=== PATIENT | female | born 1940 | race Caucasian/White ===

== ENCOUNTER 2025-03-01 22:51 | Inpatient (IN) | payer MEDICARE, SELFPAY ==
[2025-03-01 23:57] VITALS: BMI 18.9
[2025-03-02 00:01] VITALS: BP 165/85; PULSE 60; RESP 18; TEMP 36.6; O2SAT 95
--- NOTE | 2025-03-02 05:03 | PC.ADMIT ---
Tiffanie is an 84 years old female with past medical hx of pyelonephritis, UTI, HTN, kidney disease, Eczema, back surgery, colon surgery and disease of the thyroid gland who was taken in by EMS to [facility] reporting high anxiety. According to report, pt came in complaining of severe mental distress. pt had just moved up here to be closer to family but family has left her without telling her, so now, she endorses sadness. pt states she has not been taking her medications for the last 5 days because she is having difficulty obtaining her prescriptions, due to change in pharmacy after moving. pt states her daughter left her and she has no other contacts in [place]. pt arrived to at 2313, with an admitting diagnosis of major depressive disorder. pt is alert and oriented to self, date and situation but thought she was still at [facility]. pt signed a CV and was placed on 5mins safety check. pt was calm, pleasant, but appeared sad. Pt was not able to complete admission process, reported I cant do this right now, am very tired and am hurting, If I can get my HS medications including something for pain, so I can go to bed . pt endorses high 10/10 anxiety/depression but denied SI/HI/AVH. Pt also reported right shoulder pain, stating I have a rotator cuff tear from lifting something heavy . VSS unremarkable, pt has no visible skin issues, med. rec completed, pending unit orientation due to tiredness. Pt is FC and has multiple allergies. Hospitalist consult pending.
[2025-03-02 07:55] VITALS: BP 159/72; PULSE 65; RESP 18; TEMP 36.6; O2SAT 93
--- NOTE | 2025-03-02 09:07 | HO.PSYADMNOT ---
HPI Date of Service: 03/02/25 Chief Complaint: Major Dep Disorder recurrent severe w/out psychoti Sources of Information: patient interviewed, chart reviewed and crisis/core team assessment reviewed HPI Subjective Notes: Raza Warning and Conditional Voluntary Narrative: Mrs. Cunningham is an 84 year-old woman with a hx of MDD, who self presented to [facility] reporting anxiety attact, concern for medication misuse. No reported SI/HI. Pertinent labs in ED include CBC without leukocytosis, H&H low side of normal with elevated MCV (will check B12), CMP without electrolyte abnormalities, BUN 13, Cr 0.72, Creatinine clearance 84. Utox positive for THC. BAL 10. Pt had also reported drinking one glass of wine daily at night. UA not suggestive of UTI. On the unit, pt reports she went to the ED because she had anxiety attacks. She describes such incidences as I start shaking, crying, screaming, can't walk, feel very restless. She denies SI/HI. She reports she has struggled with symptoms of depression for several years and has been followed by a psychiatrist in the community. She reports modafanil has been very helpful for depression along with other medications she is on. She denies hx of suicide attempts. She reports she used to get oxycodone for back pain but one year ago it was switch to suboxone. She reports chronic back pain due to scoliosis, shoulder pain. She also reports she was at [facility] and her insurance stopped paying so she recently moved to an [facility] on her own and since then she had issues with her pharmacy and difficulty taking medications as prescribed. Per daughter, mother has hx of substance use, opioid medications and going to multiple providers. No hx of VH/AH. No hx of delusions. Pt reports poor sleep due to pain. She reports using edibles to help with sleep. She is noted to have a resting tremors and some tapping of her feet. Past Psychiatric History: Inpt: none prior OP: Dr. Mack Past medication trials: wellbutrin, abilify, modafinil, lexapro Medical Evaluation Reviewed: Yes PMFSH Family History: none Social History: Pt originally from [place]. She has a brother. Completed 4 year college. She has two daughters. Substance History: Pt not fully forthcoming. She does report using alcohol daily- glass of wine at night. Per daughter misuse of opioid pain medications. Trauma History: denies Diagnostics Vital Signs (24Hr): Vital Signs - 24 hr 03/02/25 00:01 Temperature 97.9 F Pulse Rate 60 Respiratory Rate 18 Blood Pressure 165/85 H Pulse Oximetry 95 Oxygen Delivery Method Room Air BMI result Body Mass Index 18.9 Labs 03/03/25 07:12 03/03/25 07:12 Meds/Allergies Meds Home Medications ?Medication ?Instructions ?Recorded ?Confirmed ?Type CeraVe 1 applicator topical DAILY PRN Dry 03/02/25 03/02/25 History Skin amlodipine 10 mg tablet 10 mg PO DAILY 03/02/25 03/02/25 History aripiprazole 10 mg tablet 10 mg PO BEDTIME 03/02/25 03/02/25 History bisacodyl 5 mg PO DAILY PRN Constipation 03/02/25 03/02/25 History buprenorphine 2 mg-naloxone 0.5 mg 3 film sublingual DAILY 03/02/25 03/02/25 History sublingual film bupropion HCl 100 mg tablet 100 mg PO DAILY 03/02/25 03/02/25 History cholecalciferol (vitamin D3) 100 mcg PO DAILY 03/02/25 03/02/25 History diphenhydramine citrate 25 mg PO BEDTIME PRN Itching 03/02/25 03/02/25 History escitalopram oxalate 10 mg tablet 15 mg PO BEDTIME 03/02/25 03/02/25 History eszopiclone 1 mg tablet 1 mg PO BEDTIME 03/02/25 03/02/25 History ferrous sulfate 325 mg PO Q OTHER DAY 03/02/25 03/02/25 History fluticasone propionate 50 1 spray intranasal DAILY 03/02/25 03/02/25 History mcg/actuation nasal spray,suspension latanoprost 1 drp Not Applicable DIRECTED 03/02/25 03/02/25 History levothyroxine 100 mcg tablet 100 mcg PO DAILY 03/02/25 03/02/25 History losartan 50 mg tablet 50 mg PO DAILY 03/02/25 03/02/25 History modafinil 200 mg tablet 200 mg PO BID 03/02/25 03/02/25 History ondansetron HCl 4 mg tablet 4 mg PO TID 03/02/25 03/02/25 History rosuvastatin 5 mg tablet 5 mg PO DAILY 03/02/25 03/02/25 History senna-docusate sodium 8.6 - 50 mg PO DAILY PRN 03/02/25 03/02/25 History Constipation triamcinolone acetonide 0.1 % 1 appl topical BID PRN irritation 03/02/25 03/02/25 History topical cream Allergies Allergies Allergy/AdvReac Type Severity Reaction Status Date / Time bacitracin Allergy Unknown Verified 03/01/25 23:54 chlorhexidine Allergy Unknown Verified 03/01/25 23:54 chloroxylenol Allergy Unknown Verified 03/01/25 23:54 imidurea Allergy Unknown Verified 03/01/25 23:54 neomycin Allergy Unknown Verified 03/01/25 23:54 quaternium 15 Allergy Unknown Verified 03/01/25 23:54 glutaral Allergy Unknown Uncoded 03/01/25 23:54 Octanoic acid Allergy Unknown Uncoded 03/01/25 23:54 Mental Status Exam Mental Status Exam Narrative: Appearance: casual clothing, good hygiene, in NAD behavior: somewhat guarded and irritable, but cooperative Psychomotor: no agitaiton or retardation noted Speech: clear, normal rate/rhythm/volume, spontaneous TP: focused on anxiety and needing ativan TC: wanting to go home soon Mood: anxious Affect: at times irritable SI: denies HI: denies VH/AH: none Delusions: none Insight/judgment: poor x 2 Memory/cog:alert, oriented x 3. pending MOCA/ACL. Assessment & Plan Assessment & Plan (1) MDD (major depressive disorder), recurrent episode, moderate: Status: Acute Code(s): F33.1 - Major depressive disorder, recurrent, moderate Plan Mrs. cunningham is an 84 year-old woman with hx of MDD, reports anxiety attacks which she reports are recent. She reports shaking. noted to have resting tremors and tapping feet, do suspect underlying movement d/o. resting tremor concerning for Parkinsonism. But also wonder if some degree of akathisia with subjective feeling of restlessness and tapping feet. We discussed risks, benefits and alternative treatment options, discussed holding abilify for now due to concern of akathia and parkinsonism. Discussed continuing modafinil and lexapro. hold wellbutrin since she reports mostly increase anxiety and restless (may reintroduce). Obtain collateral information from family and OP psychiatrist. OT to complete MOCA/ACL. SW looking into [facility] (reason as to why pt not able to stay as she appears to need more supports). PLAN 1. Admit to S1, CV, 15 minutes checks 2. continue modafinil, lexapro. hold abilify and wellbutrin. 3. obtain collateral information 4.aftercare planning. Patient educated on: diagnosis, medication risk/benefits and substance abuse Reason for continued inpatient stay Substantial Risk for: inability to function Statement Statement: I have reviewed the history and physical and performed a pertinent examination on my patient. No changes have occurred unless specified. If the History and Physical was not performed prior to admission, the Hospitalist's service will be consulted for completing the admission physical. Time Spent With Patient Time: Total time managing care of this patient today ____ minutes.
--- NOTE | 2025-03-02 10:02 | HO.PM.IMCN ---
History of Present Illness Data of Consult Service Date: 03/02/25 Primary Care Provider: Unknown Physician HPI Reason for consult: Medical management 84-year-old female with a past medical history of hypertension, hypothyroidism, history of UTIs and pyelonephritis, mood disorder, history of opioid misuse on Suboxone, history of EtOH, pharyngeal esophageal dysphagia, and eczema, was admitted to [facility] with suicidal ideation. [facility] she reports that she is prescribed Suboxone 3 times daily. Patient is vague and has inconsistencies regarding her substance use history. She reports that she last used opiates 35 years ago, and then reports that she last used 2 years ago. She is difficult to redirect, focusing on her anxiety level. Requesting multiple medications. She does not appear to be any acute distress on examination. On review of her record her labs were within normal limits. She tested positive for marijuana her tox screen, reports she using gummy THC. Daily EtOH use. She denies any shortness of breath, chest pain, dizziness lightheadedness or any other concerning symptoms. Review of Systems Review of Systems: Denies any shortness of breath, chest pain, dizziness, lightheadedness, abdominal pain or discomfort, nausea vomiting or diarrhea PMFSH Social History Patient Tobacco Use Status: Never used Tobacco Currently Displaying Signs/Symptoms of Drug Intoxication Withdrawal: No Advance Directives: Yes Advance Directives Information Provided: No Advance Directives on File: No Do you have thoughts of harming others: None Do you have a plan to hurt others: No Plan Patient : No service: No Sexual orientation: Straight/Heterosexual Meds Allergies Allergy/AdvReac Type Severity Reaction Status Date / Time bacitracin Allergy Unknown Verified 03/01/25 23:54 chlorhexidine Allergy Unknown Verified 03/01/25 23:54 chloroxylenol Allergy Unknown Verified 03/01/25 23:54 imidurea Allergy Unknown Verified 03/01/25 23:54 neomycin Allergy Unknown Verified 03/01/25 23:54 quaternium 15 Allergy Unknown Verified 03/01/25 23:54 glutaral Allergy Unknown Uncoded 03/01/25 23:54 Octanoic acid Allergy Unknown Uncoded 03/01/25 23:54 Active Medications: Current Medications Acetaminophen (Acetaminophen 325 Mg Tablet) 650 mg PO Q6H PRN PRN Reason: Headache/Pain, Scale 1-10 Last Admin: 03/02/25 09:21 Dose: 650 mg Al Hydroxide/Mg Hydroxide (Magnesium Hydrox/Alum Hydrox 30 Ml Oral.Susp) 30 ml PO Q6H PRN PRN Reason: Heartburn/Nausea Amlodipine Besylate (Amlodipine Besylate 10 Mg Tablet) 10 mg PO DAILY [facility]; Protocol Last Admin: 03/02/25 07:58 Dose: 10 mg Aripiprazole (Aripiprazole 10 Mg Tablet) 10 mg PO BEDTIME [facility] Buprenorphine/Naloxone (Buprenorphine/Naloxone 2/0.5mg Tab.Subl) 1 tab SUBLINGUAL TID [facility] Escitalopram Oxalate (Escitalopram Oxalate 10 Mg Tablet) 10 mg PO DAILY [facility] Last Admin: 03/02/25 07:59 Dose: 10 mg Latanoprost (Latanoprost 0.005 % Ophth Radha 2.5 Ml Drops) 1 drop EYE-BOTH BEDTIME [facility] Levothyroxine Sodium (Levothyroxine Sodium 100 Mcg Tablet) 100 mcg PO DAILY@0600 [facility] Last Admin: 03/02/25 05:16 Dose: 100 mcg Losartan Potassium (Losartan Potassium 50 Mg Tablet) 50 mg PO DAILY [facility]; Protocol Last Admin: 03/02/25 07:58 Dose: 50 mg Magnesium Hydroxide (Milk Of Magnesia 30 Ml Oral.Susp) 30 ml PO DAILY PRN PRN Reason: Constipation Thiamine HCl (Thiamine Hcl 100 Mg Tablet) 100 mg PO DAILY [facility] Last Admin: 03/02/25 07:58 Dose: 100 mg Home Medications ?Medication ?Instructions ?Recorded ?Confirmed ?Last Taken ?Type CeraVe 1 applicator topical DAILY PRN Dry 03/02/25 03/02/25 Unknown History Skin amlodipine 10 mg tablet 10 mg PO DAILY 03/02/25 03/02/25 Unknown History aripiprazole 10 mg tablet 10 mg PO BEDTIME 03/02/25 03/02/25 Unknown History bisacodyl 5 mg PO DAILY PRN Constipation 03/02/25 03/02/25 Unknown History buprenorphine 2 mg-naloxone 0.5 mg 3 film sublingual DAILY 03/02/25 03/02/25 Unknown History sublingual film bupropion HCl 100 mg tablet 100 mg PO DAILY 03/02/25 03/02/25 Unknown History cholecalciferol (vitamin D3) 100 mcg PO DAILY 03/02/25 03/02/25 Unknown History diphenhydramine citrate 25 mg PO BEDTIME PRN Itching 03/02/25 03/02/25 Unknown History escitalopram oxalate 10 mg tablet 15 mg PO BEDTIME 03/02/25 03/02/25 Unknown History eszopiclone 1 mg tablet 1 mg PO BEDTIME 03/02/25 03/02/25 Unknown History ferrous sulfate 325 mg PO Q OTHER DAY 03/02/25 03/02/25 Unknown History fluticasone propionate 50 1 spray intranasal DAILY 03/02/25 03/02/25 Unknown History mcg/actuation nasal spray,suspension latanoprost 1 drp Not Applicable DIRECTED 03/02/25 03/02/25 Unknown History levothyroxine 100 mcg tablet 100 mcg PO DAILY 03/02/25 03/02/25 Unknown History losartan 50 mg tablet 50 mg PO DAILY 03/02/25 03/02/25 Unknown History modafinil 200 mg tablet 200 mg PO BID 03/02/25 03/02/25 Unknown History ondansetron HCl 4 mg tablet 4 mg PO TID 03/02/25 03/02/25 Unknown History rosuvastatin 5 mg tablet 5 mg PO DAILY 03/02/25 03/02/25 Unknown History senna-docusate sodium 8.6 - 50 mg PO DAILY PRN 03/02/25 03/02/25 Unknown History Constipation triamcinolone acetonide 0.1 % 1 appl topical BID PRN irritation 03/02/25 03/02/25 Unknown History topical cream Physical Exam Vital Signs and Narrative: Vital Signs: Last Vital Signs Temp 97.9 F 03/02/25 00:01 Pulse 60 03/02/25 00:01 Resp 18 03/02/25 00:01 BP 165/85 H 03/02/25 00:01 Pulse Ox 95 03/02/25 00:01 O2 Del Method Room Air 03/02/25 00:01 BMI result Body Mass Index 18.9 Alert and oriented X3, poor historian, anxious Neuro: CN II-X11 intact, no deficits, visual acuity intact EYES: PERRLA, EOM intact ENT: Hearing intact, lips moist Cardiac: S1 S2 RRR, No ectopy Pulmonary: lungs clear to auscultation, No increased WOB. Abdominal: BS active in all 4 quadrants, no guarding or tenderness MSK: Strength 5/5 upper and lower extremities : Deferred Extremities: No edema in lower extremities Psych: Anxious mood Skin: Warm and dry, Intact Assessment and Plan (1) HTN (hypertension): Status: Acute Plan Mood disorder/suicidal ideation Plan per Psychiatry Substance misuse disorder Continue Suboxone t.i.d. Hypertension Continue amlodipine, and losartan. Hypothyroidism Continue levothyroxine. Thank you for allowing me to participate in the care of this patient. We will follow as needed. Please reconsult of any acute concerns or issues arise
--- NOTE | 2025-03-02 10:34 | PC.NURSE ---
Daughter Elizabeth Gordon: phone number [phone]
[2025-03-02] MEDS: Buprenorphine/Naloxone 2/0.5mg TAB.SUBL 1 TAB SUBLINGUAL ×3 (11:53→20:15)
[2025-03-02 14:47] VITALS: BMI 18.9
--- NOTE | 2025-03-02 18:25 | PC.NURSE ---
Pt.'s daughter, Lenora called and requested information about her mother. This caption writer provided the information requested. She stated over and over my mother runs out of Provigil, and she looses it when she is out for the month early, which happens every month . She was also on Linesta 3mg at , and she would run out of that as well. In addition, she drinks a whole bottle of wine every day . She also has a hx of pain medication dependency since she was in her 20's . She requested to be transferred to social work, which this caption writer did.
[2025-03-02 20:10] VITALS: BP 150/67; PULSE 58; RESP 16; TEMP 36.9; O2SAT 93
[2025-03-03 07:41] LABS: MANUAL DIFF FLAG NO
[2025-03-03 07:48] LABS: Hematocrit 36.4 % (37.0-47.0); Hemoglobin 12.3 g/dl (12.0-16.0); Imm Gran Abs Auto 0.01 X10*3/uL (0.00-0.03); Imm Gran Pct Auto 0.2 % (0.0-0.4); Lymphocytes Absolute Auto 2.0 X10*3/uL (1.2-4.9); Mean Corpuscular HGB Conc 33.8 g/dl (31.0-35.0); Mean Corpuscular Hemoglobin 32.3 pg (27.0-33.0); Mean Corpuscular Volume 95.5 fL (80.0-98.0); NRBC Abs Auto 0.000 X10*3/uL (0.0-0.012); NRBC Pct Auto 0.0 /100WBC (0.0-0.2); Platelet Count 337 X10*3/uL (160-400); Red Blood Count 3.81 X10*6/uL (4.20-5.50); White Blood Count 6.6 X10*3/uL (4.8-10.8)
[2025-03-03 08:00] VITALS: BP 134/65; PULSE 73; RESP 16; TEMP 2.5; TEMP 36.5; O2SAT 94
[2025-03-03 08:02] LABS: Alanine Aminotransferase 28 U/L (0-31); Albumin Level 4.1 g/dL (3.5-5.0); Alkaline Phosphatase 133 U/L (39-117); Anion Gap 13 (12-20); Aspartate Amino Transferase 34 U/L (5-31); Blood Urea Nitrogen 18 mg/dL (9-16); Calcium 9.3 mg/dL (8.4-10.2); Carbon Dioxide 27 mmol/L (22-29); Chloride 104 mmol/L (96-108); Cholesterol 234 mg/dL (<200); Creatinine Clr Calc Pharmacy 38.8; Estimated Glomerular Filt Rate > 60; HDL Cholesterol 107 mg/dL (>40); Magnesium 2.0 mg/dL (1.6-2.6); Potassium 4.4 mmol/L (3.3-5.1); Sodium 140 mmol/L (135-145); Total Protein 6.8 g/dL (6.5-8.0); Triglycerides 115 mg/dL (<150)
[2025-03-03 08:08] LABS: Hemoglobin A1C 103.3611 umol/L; Total Hemoglobin (HGBA1C) 3250.0492 umol/L
[2025-03-03 09:18] VITALS: BP 134/65
[2025-03-03] MEDS: Buprenorphine/Naloxone 2/0.5mg TAB.SUBL 1 TAB SUBLINGUAL ×3 (09:18→20:10)
[2025-03-03 09:20] VITALS: BP 134/65
--- NOTE | 2025-03-03 19:23 | HO.PSYCHPN ---
Subjective Subjective Date of Service: 03/03/25 Reason For Visit: Major Dep Disorder recurrent severe w/out psychoti Subjective Notes: Conditional Voluntary and 3 Day Interim History: Pt reports feeling less anxious. She reports poor sleep. we do not have lunesta. we discussed trazodone 50mg po qhs. she denies SI/HI. She reports conflict with daughters. She reports she wants to go home soon. Review of Systems Review of Systems Denies any shortness of breath, chest pain, dizziness, lightheadedness, abdominal pain or discomfort, nausea vomiting or diarrhea Mental Status Exam Mental Status Exam Narrative: Appearance: casual clothing, good hygiene, in NAD behavior: somewhat guarded and irritable, but cooperative Psychomotor: no agitaiton or retardation noted Speech: clear, normal rate/rhythm/volume, spontaneous TP: focused on anxiety and needing ativan TC: wanting to go home soon Mood: anxious Affect: at times irritable SI: denies HI: denies VH/AH: none Delusions: none Insight/judgment: poor x 2 Memory/cog:alert, oriented x 3. pending MOCA/ACL. Diagnostics Vital Signs (24Hr): Vital Signs - 24 hr 03/02/25 20:10 03/03/25 08:00 03/03/25 09:18 Temperature 98.5 F 36.5 F L Pulse Rate 58 73 Respiratory Rate 16 16 Blood Pressure 150/67 H 134/65 134/65 Pulse Oximetry 93 94 Oxygen Delivery Method Room Air Room Air 03/03/25 09:20 Temperature Pulse Rate Respiratory Rate Blood Pressure 134/65 Pulse Oximetry Oxygen Delivery Method BMI result Body Mass Index 18.9 Labs 03/03/25 07:12 03/03/25 07:12 Labs: Laboratory Results - last 48 hr 03/03/25 07:12 WBC 6.6 RBC 3.81 L Hgb 12.3 Hct 36.4 L MCV 95.5 MCH 32.3 MCHC 33.8 RDW 13.8 Plt Count 337 MPV 8.2 L Immature Gran % (Auto) 0.2 Neut % (Auto) 49.9 Lymph % (Auto) 30.2 [place] % (Auto) 11.5 H Eos % (Auto) 7.7 H Baso % (Auto) 0.5 Lymph # (Auto) 2.0 [place] # (Auto) 0.8 Eos # (Auto) 0.5 H Baso # (Auto) 0.0 Abs Immat Gran (auto) 0.01 Absolute Neuts (auto) 3.3 Absolute Nucleated RBC 0.000 Nucleated RBC % (auto) 0.0 Sodium 140 Potassium 4.4 Chloride 104 Carbon Dioxide 27 Anion Gap 13 BUN 18 H Creatinine 0.72 Estim Creat Clear Calc 38.8 Estimated GFR > 60 Random Glucose 125 H Estimat Average Glucose 100 Hemoglobin A1c % 5.1 Calcium 9.3 Magnesium 2.0 Total Bilirubin 0.4 AST 34 H ALT 28 Alkaline Phosphatase 133 H Total Protein 6.8 Albumin 4.1 Triglycerides 115 Cholesterol 234 H LDL Cholesterol, Calc 104 H HDL Cholesterol 107 Medications Medications Current Medications Acetaminophen (Acetaminophen 325 Mg Tablet) 650 mg PO Q6H PRN PRN Reason: Headache/Pain, Scale 1-10 Last Admin: 03/03/25 15:12 Dose: 650 mg Al Hydroxide/Mg Hydroxide (Magnesium Hydrox/Alum Hydrox 30 Ml Oral.Susp) 30 ml PO Q6H PRN PRN Reason: Heartburn/Nausea Amlodipine Besylate (Amlodipine Besylate 10 Mg Tablet) 10 mg PO DAILY [facility]; Protocol Last Admin: 03/03/25 09:18 Dose: 10 mg Buprenorphine/Naloxone (Buprenorphine/Naloxone 2/0.5mg Tab.Subl) 1 tab SUBLINGUAL TID [facility] Last Admin: 03/03/25 14:46 Dose: 1 tab Escitalopram Oxalate (Escitalopram Oxalate 10 Mg Tablet) 10 mg PO DAILY [facility] Last Admin: 03/03/25 09:19 Dose: 10 mg Latanoprost (Latanoprost 0.005 % Ophth Radha 2.5 Ml Drops) 1 drop EYE-BOTH BEDTIME [facility] Last Admin: 03/02/25 21:19 Dose: Not Given Levothyroxine Sodium (Levothyroxine Sodium 100 Mcg Tablet) 100 mcg PO DAILY@0600 [facility] Last Admin: 03/03/25 05:49 Dose: 100 mcg Losartan Potassium (Losartan Potassium 50 Mg Tablet) 50 mg PO DAILY [facility]; Protocol Last Admin: 03/03/25 09:20 Dose: 50 mg Magnesium Hydroxide (Milk Of Magnesia 30 Ml Oral.Susp) 30 ml PO DAILY PRN PRN Reason: Constipation Modafinil (Modafinil 100 Mg Tablet) 200 mg PO BID@0700,1300 [facility] Last Admin: 03/03/25 12:29 Dose: 200 mg Thiamine HCl (Thiamine Hcl 100 Mg Tablet) 100 mg PO DAILY [facility] Last Admin: 03/03/25 09:20 Dose: 100 mg Allergies Allergies Allergy/AdvReac Type Severity Reaction Status Date / Time bacitracin Allergy Unknown Verified 03/01/25 23:54 chlorhexidine Allergy Unknown Verified 03/01/25 23:54 chloroxylenol Allergy Unknown Verified 03/01/25 23:54 imidurea Allergy Unknown Verified 03/01/25 23:54 neomycin Allergy Unknown Verified 03/01/25 23:54 quaternium 15 Allergy Unknown Verified 03/01/25 23:54 glutaral Allergy Unknown Uncoded 03/01/25 23:54 Octanoic acid Allergy Unknown Uncoded 03/01/25 23:54 Assessment & Plan Assessment & Plan (1) MDD (major depressive disorder), recurrent episode, moderate: Status: Acute Code(s): F33.1 - Major depressive disorder, recurrent, moderate Plan Mrs. cunningham is an 84 year-old woman with hx of MDD, reports anxiety attacks which she reports are recent. She reports shaking. noted to have resting tremors and tapping feet, do suspect underlying movement d/o. resting tremor concerning for Parkinsonism. But also wonder if some degree of akathisia with subjective feeling of restlessness and tapping feet. We discussed risks, benefits and alternative treatment options, discussed holding abilify for now due to concern of akathia and parkinsonism. Discussed continuing modafinil and lexapro. hold wellbutrin since she reports mostly increase anxiety and restless (may reintroduce). Obtain collateral information from family and OP psychiatrist. OT to complete MOCA/ACL. SW looking into [facility] (reason as to why pt not able to stay as she appears to need more supports). PLAN 03/03 add trazodone for sleep. continue all other medications. Reason for continued inpatient stay Substantial Risk for: inability to function Time Spent With Patient Time: Total time managing care of this patient today ____ minutes.
[2025-03-03 20:09] VITALS: BP 145/64; PULSE 54; RESP 16; TEMP 37; O2SAT 97
[2025-03-04] MEDS: Milk of Magnesia 30 ML ORAL.SUSP PO (02:27)
[2025-03-04 08:15] VITALS: BP 135/69; PULSE 79; RESP 16; TEMP 36.7; O2SAT 95
[2025-03-04] MEDS: Buprenorphine/Naloxone 2/0.5mg TAB.SUBL 1 TAB SUBLINGUAL ×3 (08:37→20:18)
--- NOTE | 2025-03-04 17:11 | P.PNPSI_ITS ---
Subjective Subjective Date of Service: 03/04/25 Reason For Visit: Major Dep Disorder recurrent severe w/out psychoti Subjective Notes: Conditional Voluntary and 3 Day Interim History: Pt slept better with trazodone. She denies SI/HI. She reports feeling less anxious. She notes she has not had any episodes of shakiness. She is upset that daughter is blaming her. not accepting of concern in terms of substance use. No behavioral concerns. pending moca/acl. Review of Systems Review of Systems Denies any shortness of breath, chest pain, dizziness, lightheadedness, abdominal pain or discomfort, nausea vomiting or diarrhea Mental Status Exam Mental Status Exam Narrative: Appearance: casual clothing, good hygiene, in NAD behavior: somewhat guarded and irritable, but cooperative Psychomotor: no agitaiton or retardation noted Speech: clear, normal rate/rhythm/volume, spontaneous TP: focused on anxiety and needing ativan TC: wanting to go home soon Mood: anxious Affect: at times irritable SI: denies HI: denies VH/AH: none Delusions: none Insight/judgment: poor x 2 Memory/cog:alert, oriented x 3. pending MOCA/ACL. Diagnostics Vital Signs (24Hr): Vital Signs - 24 hr 03/03/25 20:09 03/04/25 08:15 Temperature 98.6 F 98.1 F Pulse Rate 54 79 Respiratory Rate 16 16 Blood Pressure 145/64 H 135/69 Pulse Oximetry 97 95 Oxygen Delivery Method Room Air Room Air BMI result Body Mass Index 18.9 Labs 03/03/25 07:12 03/03/25 07:12 Labs: Laboratory Results - last 48 hr 03/03/25 07:12 WBC 6.6 RBC 3.81 L Hgb 12.3 Hct 36.4 L MCV 95.5 MCH 32.3 MCHC 33.8 RDW 13.8 Plt Count 337 MPV 8.2 L Immature Gran % (Auto) 0.2 Neut % (Auto) 49.9 Lymph % (Auto) 30.2 [place] % (Auto) 11.5 H Eos % (Auto) 7.7 H Baso % (Auto) 0.5 Lymph # (Auto) 2.0 [place] # (Auto) 0.8 Eos # (Auto) 0.5 H Baso # (Auto) 0.0 Abs Immat Gran (auto) 0.01 Absolute Neuts (auto) 3.3 Absolute Nucleated RBC 0.000 Nucleated RBC % (auto) 0.0 Sodium 140 Potassium 4.4 Chloride 104 Carbon Dioxide 27 Anion Gap 13 BUN 18 H Creatinine 0.72 Estim Creat Clear Calc 38.8 Estimated GFR > 60 Random Glucose 125 H Estimat Average Glucose 100 Hemoglobin A1c % 5.1 Calcium 9.3 Magnesium 2.0 Total Bilirubin 0.4 AST 34 H ALT 28 Alkaline Phosphatase 133 H Total Protein 6.8 Albumin 4.1 Triglycerides 115 Cholesterol 234 H LDL Cholesterol, Calc 104 H HDL Cholesterol 107 Medications Medications Current Medications Acetaminophen (Acetaminophen 325 Mg Tablet) 650 mg PO Q6H PRN PRN Reason: Headache/Pain, Scale 1-10 Last Admin: 03/04/25 02:23 Dose: 650 mg Al Hydroxide/Mg Hydroxide (Magnesium Hydrox/Alum Hydrox 30 Ml Oral.Susp) 30 ml PO Q6H PRN PRN Reason: Heartburn/Nausea Amlodipine Besylate (Amlodipine Besylate 10 Mg Tablet) 10 mg PO DAILY [facility]; Protocol Last Admin: 03/04/25 08:37 Dose: 10 mg Buprenorphine/Naloxone (Buprenorphine/Naloxone 2/0.5mg Tab.Subl) 1 tab SUBLINGUAL TID [facility] Last Admin: 03/04/25 14:58 Dose: 1 tab Escitalopram Oxalate (Escitalopram Oxalate 10 Mg Tablet) 10 mg PO DAILY [facility] Last Admin: 03/04/25 08:37 Dose: 10 mg Ferrous Sulfate (Ferrous Sulfate 324 Mg Tablet.Dr) 324 mg PO Q2D [facility] Latanoprost (Latanoprost 0.005 % Ophth Radha 2.5 Ml Drops) 1 drop EYE-BOTH BEDTIME [facility] Last Admin: 03/03/25 20:11 Dose: Not Given Levothyroxine Sodium (Levothyroxine Sodium 100 Mcg Tablet) 100 mcg PO DAILY@0600 [facility] Last Admin: 03/04/25 05:36 Dose: 100 mcg Lorazepam (Lorazepam 0.5 Mg Tablet) 0.5 mg PO BEDTIME [facility] Losartan Potassium (Losartan Potassium 50 Mg Tablet) 50 mg PO DAILY [facility]; Protocol Last Admin: 03/04/25 08:37 Dose: 50 mg Magnesium Hydroxide (Milk Of Magnesia 30 Ml Oral.Susp) 30 ml PO DAILY PRN PRN Reason: Constipation Last Admin: 03/04/25 02:27 Dose: 30 ml Modafinil (Modafinil 100 Mg Tablet) 200 mg PO BID@0700,1300 [facility] Last Admin: 03/04/25 12:21 Dose: 200 mg Thiamine HCl (Thiamine Hcl 100 Mg Tablet) 100 mg PO DAILY [facility] Last Admin: 03/04/25 08:37 Dose: 100 mg Trazodone HCl (Trazodone Hcl 50 Mg Tablet) 50 mg PO BEDTIME MRX1 PRN PRN Reason: Insomnia Last Admin: 03/03/25 21:08 Dose: 50 mg Vitamin D (Cholecalciferol (Vitamin D3) 25 Mcg Tablet) 100 mcg PO DAILY [facility] Allergies Allergies Allergy/AdvReac Type Severity Reaction Status Date / Time bacitracin Allergy Unknown Verified 03/01/25 23:54 chlorhexidine Allergy Unknown Verified 03/01/25 23:54 chloroxylenol Allergy Unknown Verified 03/01/25 23:54 imidurea Allergy Unknown Verified 03/01/25 23:54 neomycin Allergy Unknown Verified 03/01/25 23:54 quaternium 15 Allergy Unknown Verified 03/01/25 23:54 glutaral Allergy Unknown Uncoded 03/01/25 23:54 Octanoic acid Allergy Unknown Uncoded 03/01/25 23:54 Assessment & Plan Assessment & Plan (1) MDD (major depressive disorder), recurrent episode, moderate: Status: Acute Code(s): F33.1 - Major depressive disorder, recurrent, moderate Plan Mrs. cunnnigham is an 84 year-old woman with hx of MDD, reports anxiety attacks which she reports are recent. She reports shaking. noted to have resting tremors and tapping feet, do suspect underlying movement d/o. resting tremor concerning for Parkinsonism. But also wonder if some degree of akathisia with subjective feeling of restlessness and tapping feet. We discussed risks, benefits and alternative treatment options, discussed holding abilify for now due to concern of akathia and parkinsonism. Discussed continuing modafinil and lexapro. hold wellbutrin since she reports mostly increase anxiety and restless (may reintroduce). Obtain collateral information from family and OP psychiatrist. OT to complete MOCA/ACL. SW looking into [facility] (reason as to why pt not able to stay as she appears to need more supports). PLAN 03/03 add trazodone for sleep. continue all other medications. 03/04 continue tx. while in hospital will give ativan 0.5mg po qhs. Reason for continued inpatient stay Substantial Risk for: inability to function Time Spent With Patient Time: Total time managing care of this patient today ____ minutes.
[2025-03-04 20:00] VITALS: BP 136/65; PULSE 55; RESP 18; TEMP 36.1; O2SAT 94
[2025-03-05] MEDS: Milk of Magnesia 30 ML ORAL.SUSP PO (05:38)
[2025-03-05 08:37] VITALS: BP 128/59; PULSE 65; RESP 16; TEMP 36.6; O2SAT 96
[2025-03-05] MEDS: Buprenorphine/Naloxone 2/0.5mg TAB.SUBL 1 TAB SUBLINGUAL ×3 (08:43→20:24)
[2025-03-05] MEDS: Ferrous Sulfate 324 MG TABLET.DR PO (09:16)
--- NOTE | 2025-03-05 11:13 | P.PNPSI_ITS ---
Subjective Subjective Date of Service: 03/05/25 Reason For Visit: Major Dep Disorder recurrent severe w/out psychoti Subjective Notes: Conditional Voluntary and 3 Day Interim History: Pt slept better with trazodone. Pt reports feeling less anxious and less shaky. She denies SI/HI. She reports she wants to go back home. No behavioral concerns. collateral information from daugther who denied safety concerns but concerns in terms of misuse of medications and alcohol use. pt with limited insight into alcohol use, declines any interventions. Review of Systems Review of Systems Denies any shortness of breath, chest pain, dizziness, lightheadedness, abdominal pain or discomfort, nausea vomiting or diarrhea Mental Status Exam Mental Status Exam Narrative: Appearance: casual clothing, good hygiene, in NAD behavior: somewhat guarded and irritable, but cooperative Psychomotor: no agitaiton or retardation noted Speech: clear, normal rate/rhythm/volume, spontaneous TP: focused on anxiety and needing ativan TC: wanting to go home soon Mood: anxious Affect: at times irritable SI: denies HI: denies VH/AH: none Delusions: none Insight/judgment: poor x 2 Memory/cog:alert, oriented x 3. pending MOCA/ACL. Diagnostics Vital Signs (24Hr): Vital Signs - 24 hr 03/04/25 20:00 03/05/25 08:37 Temperature 97.0 F 97.9 F Pulse Rate 55 65 Respiratory Rate 18 16 Blood Pressure 136/65 128/59 L Pulse Oximetry 94 96 Oxygen Delivery Method Room Air Room Air BMI result Body Mass Index 18.9 Labs 03/03/25 07:12 03/03/25 07:12 Medications Medications Current Medications Acetaminophen (Acetaminophen 325 Mg Tablet) 650 mg PO Q6H PRN PRN Reason: Headache/Pain, Scale 1-10 Last Admin: 03/04/25 02:23 Dose: 650 mg Al Hydroxide/Mg Hydroxide (Magnesium Hydrox/Alum Hydrox 30 Ml Oral.Susp) 30 ml PO Q6H PRN PRN Reason: Heartburn/Nausea Amlodipine Besylate (Amlodipine Besylate 10 Mg Tablet) 10 mg PO DAILY [facility]; Protocol Last Admin: 03/05/25 08:42 Dose: 10 mg Buprenorphine/Naloxone (Buprenorphine/Naloxone 2/0.5mg Tab.Subl) 1 tab SUBLINGUAL TID [facility] Last Admin: 03/05/25 08:43 Dose: 1 tab Escitalopram Oxalate (Escitalopram Oxalate 10 Mg Tablet) 10 mg PO DAILY [facility] Last Admin: 03/05/25 08:43 Dose: 10 mg Ferrous Sulfate (Ferrous Sulfate 324 Mg Tablet.Dr) 324 mg PO Q2D [facility] Last Admin: 03/05/25 09:16 Dose: 324 mg Latanoprost (Latanoprost 0.005 % Ophth Radha 2.5 Ml Drops) 1 drop EYE-BOTH BEDTIME [facility] Last Admin: 03/04/25 20:22 Dose: Not Given Levothyroxine Sodium (Levothyroxine Sodium 100 Mcg Tablet) 100 mcg PO DAILY@0600 [facility] Last Admin: 03/05/25 05:32 Dose: 100 mcg Lorazepam (Lorazepam 0.5 Mg Tablet) 0.5 mg PO BEDTIME [facility] Last Admin: 03/04/25 20:18 Dose: 0.5 mg Losartan Potassium (Losartan Potassium 50 Mg Tablet) 50 mg PO DAILY [facility]; Protocol Last Admin: 03/05/25 08:42 Dose: 50 mg Magnesium Hydroxide (Milk Of Magnesia 30 Ml Oral.Susp) 30 ml PO DAILY PRN PRN Reason: Constipation Last Admin: 03/05/25 05:38 Dose: 30 ml Modafinil (Modafinil 100 Mg Tablet) 200 mg PO BID@0700,1300 [facility] Last Admin: 03/05/25 06:05 Dose: 200 mg Thiamine HCl (Thiamine Hcl 100 Mg Tablet) 100 mg PO DAILY [facility] Last Admin: 03/05/25 08:43 Dose: 100 mg Trazodone HCl (Trazodone Hcl 50 Mg Tablet) 50 mg PO BEDTIME MRX1 PRN PRN Reason: Insomnia Last Admin: 03/04/25 20:18 Dose: 50 mg Vitamin D (Cholecalciferol (Vitamin D3) 25 Mcg Tablet) 100 mcg PO DAILY [facility] Last Admin: 03/05/25 08:42 Dose: 100 mcg Allergies Allergies Allergy/AdvReac Type Severity Reaction Status Date / Time bacitracin Allergy Unknown Verified 03/01/25 23:54 chlorhexidine Allergy Unknown Verified 03/01/25 23:54 chloroxylenol Allergy Unknown Verified 03/01/25 23:54 imidurea Allergy Unknown Verified 03/01/25 23:54 neomycin Allergy Unknown Verified 03/01/25 23:54 quaternium 15 Allergy Unknown Verified 03/01/25 23:54 glutaral Allergy Unknown Uncoded 03/01/25 23:54 Octanoic acid Allergy Unknown Uncoded 03/01/25 23:54 Assessment & Plan Assessment & Plan (1) MDD (major depressive disorder), recurrent episode, moderate: Status: Acute Code(s): F33.1 - Major depressive disorder, recurrent, moderate Plan Mrs. cunningham is an 84 year-old woman with hx of MDD, reports anxiety attacks which she reports are recent. She reports shaking. noted to have resting tremors and tapping feet, do suspect underlying movement d/o. resting tremor concerning for Parkinsonism. But also wonder if some degree of akathisia with subjective feeling of restlessness and tapping feet. We discussed risks, benefits and alternative treatment options, discussed holding abilify for now due to concern of akathia and parkinsonism. Discussed continuing modafinil and lexapro. hold wellbutrin since she reports mostly increase anxiety and restless (may reintroduce). Obtain collateral information from family and OP psychiatrist. OT to complete MOCA/ACL. SW looking into [facility] (reason as to why pt not able to stay as she appears to need more supports). PLAN 03/03 add trazodone for sleep. continue all other medications. 03/04 continue tx. while in hospital will give ativan 0.5mg po qhs. 03/05 continue tx. Reason for continued inpatient stay Substantial Risk for: inability to function Time Spent With Patient Time: Total time managing care of this patient today ____ minutes.
[2025-03-05 20:00] VITALS: BP 118/58; PULSE 53; RESP 18; TEMP 36.1; O2SAT 93
[2025-03-06 07:55] VITALS: BP 146/63; PULSE 62; RESP 16; TEMP 36.4; O2SAT 94
[2025-03-06] MEDS: Buprenorphine/Naloxone 2/0.5mg TAB.SUBL 1 TAB SUBLINGUAL ×3 (08:52→21:07)
--- NOTE | 2025-03-06 18:57 | HO.PSYCHPN ---
Subjective Subjective Date of Service: 03/06/25 Reason For Visit: Major Dep Disorder recurrent severe w/out psychoti Subjective Notes: Conditional Voluntary and 3 Day Interim History: Pt slept better with trazodone. Pt reports feeling less anxious and less shaky. She denies SI/HI. She reports she wants to go back home. No behavioral concerns. collateral information from daugther who denied safety concerns but concerns in terms of misuse of medications and alcohol use. pt with limited insight into alcohol use, declines any interventions. Review of Systems Review of Systems Denies any shortness of breath, chest pain, dizziness, lightheadedness, abdominal pain or discomfort, nausea vomiting or diarrhea Mental Status Exam Mental Status Exam Narrative: Appearance: casual clothing, good hygiene, in NAD behavior: somewhat guarded and irritable, but cooperative Psychomotor: no agitaiton or retardation noted Speech: clear, normal rate/rhythm/volume, spontaneous TP: focused on anxiety and needing ativan TC: wanting to go home soon Mood: anxious Affect: at times irritable SI: denies HI: denies VH/AH: none Delusions: none Insight/judgment: poor x 2 Memory/cog:alert, oriented x 3. pending MOCA/ACL. Diagnostics Vital Signs (24Hr): Vital Signs - 24 hr 03/05/25 20:00 03/06/25 07:55 Temperature 96.9 F 97.6 F Pulse Rate 53 62 Respiratory Rate 18 16 Blood Pressure 118/58 L 146/63 H Pulse Oximetry 93 94 Oxygen Delivery Method Room Air Room Air BMI result Body Mass Index 18.9 Labs 03/03/25 07:12 03/03/25 07:12 Medications Medications Current Medications Acetaminophen (Acetaminophen 325 Mg Tablet) 650 mg PO Q6H PRN PRN Reason: Headache/Pain, Scale 1-10 Last Admin: 03/05/25 20:48 Dose: 650 mg Al Hydroxide/Mg Hydroxide (Magnesium Hydrox/Alum Hydrox 30 Ml Oral.Susp) 30 ml PO Q6H PRN PRN Reason: Heartburn/Nausea Amlodipine Besylate (Amlodipine Besylate 10 Mg Tablet) 10 mg PO DAILY [facility]; Protocol Last Admin: 03/06/25 08:52 Dose: 10 mg Bisacodyl (Bisacodyl 5 Mg Tablet.Dr) 5 mg PO BEDTIME [facility] Buprenorphine/Naloxone (Buprenorphine/Naloxone 2/0.5mg Tab.Subl) 1 tab SUBLINGUAL TID [facility] Last Admin: 03/06/25 14:50 Dose: 1 tab Escitalopram Oxalate (Escitalopram Oxalate 10 Mg Tablet) 10 mg PO DAILY [facility] Last Admin: 03/06/25 08:53 Dose: 10 mg Ferrous Sulfate (Ferrous Sulfate 324 Mg Tablet.Dr) 324 mg PO Q2D [facility] Last Admin: 03/05/25 09:16 Dose: 324 mg Latanoprost (Latanoprost 0.005 % Ophth Radha 2.5 Ml Drops) 1 drop EYE-BOTH BEDTIME [facility] Last Admin: 03/05/25 20:25 Dose: Not Given Levothyroxine Sodium (Levothyroxine Sodium 100 Mcg Tablet) 100 mcg PO DAILY@0600 [facility] Last Admin: 03/06/25 05:54 Dose: 100 mcg Lorazepam (Lorazepam 0.5 Mg Tablet) 0.5 mg PO BEDTIME [facility] Last Admin: 03/05/25 20:24 Dose: 0.5 mg Losartan Potassium (Losartan Potassium 50 Mg Tablet) 50 mg PO DAILY [facility]; Protocol Last Admin: 03/06/25 08:52 Dose: 50 mg Magnesium Hydroxide (Milk Of Magnesia 30 Ml Oral.Susp) 30 ml PO DAILY PRN PRN Reason: Constipation Last Admin: 03/05/25 05:38 Dose: 30 ml Modafinil (Modafinil 100 Mg Tablet) 200 mg PO BID@0700,1300 [facility] Last Admin: 03/06/25 12:55 Dose: 200 mg Thiamine HCl (Thiamine Hcl 100 Mg Tablet) 100 mg PO DAILY [facility] Last Admin: 03/06/25 08:52 Dose: 100 mg Trazodone HCl (Trazodone Hcl 50 Mg Tablet) 50 mg PO BEDTIME MRX1 PRN PRN Reason: Insomnia Last Admin: 03/05/25 20:48 Dose: 50 mg Vitamin D (Cholecalciferol (Vitamin D3) 25 Mcg Tablet) 100 mcg PO DAILY [facility] Last Admin: 03/06/25 08:53 Dose: 100 mcg Allergies Allergies Allergy/AdvReac Type Severity Reaction Status Date / Time bacitracin Allergy Unknown Verified 03/01/25 23:54 chlorhexidine Allergy Unknown Verified 03/01/25 23:54 chloroxylenol Allergy Unknown Verified 03/01/25 23:54 imidurea Allergy Unknown Verified 03/01/25 23:54 neomycin Allergy Unknown Verified 03/01/25 23:54 quaternium 15 Allergy Unknown Verified 03/01/25 23:54 glutaral Allergy Unknown Uncoded 03/01/25 23:54 Octanoic acid Allergy Unknown Uncoded 03/01/25 23:54 Assessment & Plan Assessment & Plan (1) MDD (major depressive disorder), recurrent episode, moderate: Status: Acute Code(s): F33.1 - Major depressive disorder, recurrent, moderate Plan Mrs. cunningham is an 84 year-old woman with hx of MDD, reports anxiety attacks which she reports are recent. She reports shaking. noted to have resting tremors and tapping feet, do suspect underlying movement d/o. resting tremor concerning for Parkinsonism. But also wonder if some degree of akathisia with subjective feeling of restlessness and tapping feet. We discussed risks, benefits and alternative treatment options, discussed holding abilify for now due to concern of akathia and parkinsonism. Discussed continuing modafinil and lexapro. hold wellbutrin since she reports mostly increase anxiety and restless (may reintroduce). Obtain collateral information from family and OP psychiatrist. OT to complete MOCA/ACL. SW looking into [facility] (reason as to why pt not able to stay as she appears to need more supports). PLAN 03/03 add trazodone for sleep. continue all other medications. 03/04 continue tx. while in hospital will give ativan 0.5mg po qhs. 03/05 continue tx. 03/06 continue tx. Reason for continued inpatient stay Substantial Risk for: inability to function Time Spent With Patient Time: Total time managing care of this patient today ____ minutes.
[2025-03-06 20:00] VITALS: BP 110/51; PULSE 56; RESP 16; TEMP 36.5; O2SAT 95
[2025-03-07 07:55] VITALS: BP 140/63; PULSE 62; RESP 18; TEMP 36.3; O2SAT 97
[2025-03-07] MEDS: Buprenorphine/Naloxone 2/0.5mg TAB.SUBL 1 TAB SUBLINGUAL (08:21)
[2025-03-07] MEDS: Ferrous Sulfate 324 MG TABLET.DR PO (08:24)
--- NOTE | 2025-03-07 10:23 | PM.PSYDC ---
DS: Providers Provider Date of Service: 03/07/25 Date of admission: 03/01/25 22:51 Date of discharge: 03/07/25 Primary care physician: Unknown Physician Consults: 03/02/25 05:26 Consult to Hospitalist Routine Comment: Consulting Provider: [facility] Hospitalists Reason For Exam: admission physical Discharging clinician: Idania Meeks DS: Diagnosis Discharge Diagnosis (1) MDD (major depressive disorder), recurrent episode, moderate: Status: Acute DS: Medications Discharge Medications Home Medications: Home Medications ?Medication ?Instructions ?Recorded ?Confirmed buprenorphine 2 mg-naloxone 0.5 mg 3 film sublingual DAILY 03/02/25 03/02/25 sublingual film cholecalciferol (vitamin D3) 100 mcg PO DAILY 03/02/25 03/02/25 eszopiclone 1 mg tablet 1 mg PO BEDTIME 03/02/25 03/02/25 fluticasone propionate 50 1 spray intranasal DAILY 03/02/25 03/02/25 mcg/actuation nasal spray,suspension senna-docusate sodium 8.6 - 50 mg PO DAILY PRN 03/02/25 03/02/25 Constipation Previous Rx's ?Medication ?Instructions ?Recorded amlodipine 10 mg tablet 10 mg PO DAILY #30 tabs 03/07/25 bisacodyl 5 mg tablet,delayed 5 mg PO BEDTIME #30 tabs 03/07/25 release escitalopram oxalate 10 mg tablet 10 mg PO DAILY #30 tabs 03/07/25 ferrous sulfate 324 mg (65 mg 324 mg PO Q2D #30 tabs 03/07/25 iron) tablet,delayed release levothyroxine 100 mcg tablet 100 mcg PO DAILY #30 tabs 03/07/25 losartan 50 mg tablet 50 mg PO DAILY #30 tabs 03/07/25 modafinil 100 mg tablet (Provigil) 200 mg (2 x 100 mg) PO 03/07/25 BID@0700,1300 #14 tabs thiamine mononitrate (vit B1) 100 100 mg PO DAILY #30 tabs 03/07/25 mg tablet trazodone 50 mg tablet 50 mg PO BEDTIME PRN Insomnia #30 03/07/25 tabs Mental Status Exam Mental Status Exam Narrative: Appearance: casual clothing, good hygiene, in NAD behavior: somewhat guarded and irritable, but cooperative Psychomotor: no agitaiton or retardation noted Speech: clear, normal rate/rhythm/volume, spontaneous TP: focused on anxiety and needing ativan TC: wanting to go home soon Mood: anxious Affect: at times irritable SI: denies HI: denies VH/AH: none Delusions: none Insight/judgment: poor x 2 Memory/cog:alert, oriented x 3. ACL. scored 5.8 Data Data Completed and Pending Completed studies during hospitalization [Text1]: 03/03/25 07:12 WBC 6.6 RBC 3.81 L Hgb 12.3 Hct 36.4 L MCV 95.5 MCH 32.3 MCHC 33.8 RDW 13.8 Plt Count 337 MPV 8.2 L Immature Gran % (Auto) 0.2 Neut % (Auto) 49.9 Lymph % (Auto) 30.2 [place] % (Auto) 11.5 H Eos % (Auto) 7.7 H Baso % (Auto) 0.5 Lymph # (Auto) 2.0 [place] # (Auto) 0.8 Eos # (Auto) 0.5 H Baso # (Auto) 0.0 Abs Immat Gran (auto) 0.01 Absolute Neuts (auto) 3.3 Absolute Nucleated RBC 0.000 Nucleated RBC % (auto) 0.0 Sodium 140 Potassium 4.4 Chloride 104 Carbon Dioxide 27 Anion Gap 13 BUN 18 H Creatinine 0.72 Estim Creat Clear Calc 38.8 Estimated GFR > 60 Random Glucose 125 H Estimat Average Glucose 100 Hemoglobin A1c % 5.1 Calcium 9.3 Magnesium 2.0 Total Bilirubin 0.4 AST 34 H ALT 28 Alkaline Phosphatase 133 H Total Protein 6.8 Albumin 4.1 Triglycerides 115 Cholesterol 234 H LDL Cholesterol, Calc 104 H HDL Cholesterol 107 DS: Summary Hospital Course Hospital Course: Mrs. Gordon is an 84 year-old woman with a hx of MDD, who self presented to [facility] reporting anxiety attact, concern for medication misuse. No reported SI/HI. Pertinent labs in ED include CBC without leukocytosis, H&H low side of normal with elevated MCV (will check B12), CMP without electrolyte abnormalities, BUN 13, Cr 0.72, Creatinine clearance 84. Utox positive for THC. BAL 10. Pt had also reported drinking one glass of wine daily at night. UA not suggestive of UTI. On the unit, pt reports she went to the ED because she had anxiety attacks. She describes such incidences as I start shaking, crying, screaming, can't walk, feel very restless. She denies SI/HI. She reports she has struggled with symptoms of depression for several years and has been followed by a psychiatrist in the community. She reports modafanil has been very helpful for depression along with other medications she is on. She denies hx of suicide attempts. She reports she used to get oxycodone for back pain but one year ago it was switch to suboxone. She reports chronic back pain due to scoliosis, shoulder pain. She also reports she was at [facility] at [facility] and her insurance stopped paying so she recently moved to [facility] on her own and since then she had issues with her pharmacy and difficulty taking medications as prescribed. Per daughter, mother has hx of substance use, opioid medications and going to multiple providers. No hx of VH/AH. No hx of delusions. Pt reports poor sleep due to pain. She reports using edibles to help with sleep. She is noted to have a resting tremors and some tapping of her feet. Past Psychiatric History: Inpt: none prior OP: Dr. Mack Past medication trials: wellbutrin, abilify, modafinil, lexapro Medical Evaluation Reviewed: Yes HOSPITAL COURSE On the unit, pt was admitted on a CV and placed on 15 minutes checks for safety. Pt reports she was having anxiety attacks which she described as shaking, feeling restless, screaming, yelling, not able to walk. Noted that patient had a resting tremors and tapping feet (mostly on right side),which she reported provigil was helpful with as well as helping with depression. She reported long history of depression, no suicidal ideation current or past nor hx of suicide attempt. She report she felt current medications for depression were very helpful including lexapro and abilify. Given movement disorder, and sense of increase anxious mood, discussed with patient, holding wellbutrin along with abilify but continuing lexapro and provigil. Pt reported using alcohol daily. Collateral information from daughter reporting that patient has long hx of alcohol use, along with medication seeking behaviors for pain. She is currently on suboxone and bottle she brought with her is mostly full. Pt has limited insight into substance use and declined any further assistance. She was recently discharged from [facility] due to pt declining to use nursing services that qualify her for this level of care including medication management. Pt signed a 3 day notice. She denied SI/HI throughout her stay. She was visible on the unit and attended some assigned groups. She completed ACL scored 5.8 showing mild cognitive impairment. Status at Discharge Cognitive/behavioral status at discharge: Pt with brighter, non labile affect. No SI/HI. No psychosis nor delusions. sleeping and eating well. Functional status at discharge: independent ambulation Time Spent with Patient Time attestation: Total time managing care of this patient today __45__ minutes. Time spent: Greater than 30 minutes Discharge Plan Discharge Anticipated Discharge Date/Time: 03/07/25 10:10 Patient Disposition: Home, Self-Care Discharge Diagnosis: MDD, recurrent, moderate Alcohol Use Disorder Referrals: Kelsey Wild [Other] - 03/13/25 1:30 pm Referral Note: You will be seeing Kelsey WednesdayMarch 13 at 1:30pm. She will be seeing you for a physical and after care from discharge. f you need to cancel or reschedule [facility] appointment please call the number listed. Dr. Talita Benito [Other] - 03/21/25 3:00 pm Referral Note: You will be seeing in person on 03/31/25 at 3:00pm. If you need to cancel or reschedule the appointment please call the number listed Discharge Medications: New losartan 50 mg Tablet 50 mg PO DAILY Qty: 30 0RF Protocol: Hold for SBP< HOLD for SBP < : 90 trazodone 50 mg Tablet 50 mg PO BEDTIME PRN (Reason: Insomnia) Qty: 30 0RF amlodipine 10 mg Tablet 10 mg PO DAILY Qty: 30 0RF Protocol: Hold for SBP< HOLD for SBP < : 90 bisacodyl 5 mg Tablet,Delayed Release (Dr/Ec) 5 mg PO BEDTIME Qty: 30 0RF modafinil [Provigil] 100 mg Tablet 200 mg PO BID@0700,1300 Qty: 14 1RF escitalopram oxalate 10 mg Tablet 10 mg PO DAILY Qty: 30 0RF ferrous sulfate 324 mg (65 mg iron) Tablet,Delayed Release (Dr/Ec) 324 mg PO Q2D Qty: 30 0RF thiamine mononitrate (vit B1) 100 mg Tablet 100 mg PO DAILY Qty: 30 0RF Continued fluticasone propionate 50 mcg/actuation spray,suspension 1 spray intranasal DAILY eszopiclone 1 mg tablet 1 mg PO BEDTIME buprenorphine-naloxone 2-0.5 mg film 3 film sublingual DAILY cholecalciferol (vitamin D3) 100 mcg PO DAILY senna-docusate sodium 8.6 - 50 mg PO DAILY PRN (Reason: Constipation) levothyroxine 100 mcg tablet 100 mcg PO DAILY Qty: 30 0RF Discontinued bupropion HCl 100 mg tablet 100 mg PO DAILY amlodipine 10 mg tablet 10 mg PO DAILY escitalopram oxalate 10 mg tablet 15 mg PO BEDTIME aripiprazole 10 mg tablet 10 mg PO BEDTIME losartan 50 mg tablet 50 mg PO DAILY ondansetron HCl 4 mg tablet 4 mg PO TID triamcinolone acetonide 0.1 % cream 1 appl topical BID PRN (Reason: irritation) modafinil 200 mg tablet 200 mg PO BID rosuvastatin 5 mg tablet 5 mg PO DAILY CeraVe 1 applicator topical DAILY PRN (Reason: Dry Skin) bisacodyl 5 mg PO DAILY PRN (Reason: Constipation) diphenhydramine citrate 25 mg PO BEDTIME PRN (Reason: Itching) ferrous sulfate 325 mg PO Q OTHER DAY latanoprost 1 drp Not Applicable DIRECTED Rx Instructions: 1 drop in the affected eye in the morning Discharge Orders: Discharge Order (Routine); Ordered 03/07/25 Ordered By: Idania Meeks Diet: Regular diet Activity on Discharge: As tolerated Stand Alone Forms: Patient Portal Discharge page, Substance Abuse Outpt Detox Print Language: Lao Care Plan Goals: maintain mood no SI/HI no aggression towards self or others Health Concerns: Follow up with PCP Plan of Treatment: 1. take medications as prescribed 2. go to nearest ED or call 911 in event of emergency Assessment: Pt with brighter affect. No SI/HI. No psychosis or delusions. alcohol use with limited insight. sleeping and eating well. No aggression towards self or others. Discharge Date/Time: 03/07/25 12:30
[2025-03-07] MEDS: Naloxone HCl Nasal TAKE HOME 4 MG SPRAY 8 MG NOSTRILALT (11:32)
== END 2025-03-07 12:30 | disposition home or self-care (01) | DRG 885 ==
PROVIDERS: Admitting Provider Psychiatry & Neurology Psychiatry; Visit Provider Psychiatry & Neurology Psychiatry
DX: F33.1 Major depressive disorder, recurrent, moderate (principal); F11.20 Opioid dependence, uncomplicated; I10 Essential (primary) hypertension; E03.9 Hypothyroidism, unspecified; Z87.440 Personal history of urinary (tract) infections; Z79.51 Long term (current) use of inhaled steroids; Z79.890 Hormone replacement therapy; Z79.899 Other long term (current) drug therapy
CPT/HCPCS: 36415; 80053; 80061; 83036; 83735; 85025

== ENCOUNTER → 2025-03-01 22:51 | Outpatient (BNV) | payer MEDICARE, SELFPAY | PROVIDERS: Admitting Provider Psychiatry & Neurology Psychiatry; Visit Provider Social Worker | DX: F33.1 Major depressive disorder, recurrent, moderate (principal) | CPT/HCPCS: 90792; 99232 ==

== ENCOUNTER → 2025-03-01 22:51 | Outpatient (BNV) | payer MEDICARE, SELFPAY | PROVIDERS: Admitting Provider Psychiatry & Neurology Psychiatry; Visit Provider Nurse Practitioner Family | DX: I10 Essential (primary) hypertension (principal) | CPT/HCPCS: 99221 ==